=== PATIENT | female | born 1980 | race Caucasian/White ===

== ENCOUNTER 2016-06-06 22:16 | Emergency (ER) | payer MEDICAID ==
[~2016-06-06] VITALS: Wt 81.8 kg
[2016-06-07] MEDS ORDERED: ONDANSETRON (ODT) 4 MG TAB ODT STA (01:02)
--- NOTE | 2016-06-07 01:22 | ERD ---
ER Documentation Chief Complaint Date/Time DATE: 06/07/16 TIME: 01:20 Chief Complaint ruq pain w n/v HPI 35-year-old female presents here in emergency department for complaints of right upper quadrant abdominal pain nausea and vomiting started today. Patient described the pain as sharp pain, 6/10 scale, accompanied with vomiting. Patient denies any diarrhea or constipation. Patient denies any fever or chills. Patient denies any blood in the vomit. Patient denies any blood in the stool or black stool. ROS All systems reviewed and are negative except as per history of present illness. Medications Home Meds Active Scripts Nitrofurantoin Monohyd Macrocr* (Macrobid*) 100 Mg Capsr, 100 MG PO BID for 7 Days, CAP Prov:LEELA OCHOA NP 06/07/16 Ondansetron (Ondansetron Odt) 4 Mg Tab.rapdis, 4 MG PO Q8 Y for NAUSEA AND/OR VOMITING, #30 TAB Prov:LEELA OCHOA NP 06/07/16 Hydrocodone/Acetaminophen (Hixson 5-325 Tablet) 1 Each Tablet, 1 TAB PO Q6H Y for SEVERE PAIN LEVEL 7-10, #20 TAB Prov:LEELA OCHOA NP 06/07/16 Reported Medications [none] Unknown Strength No Conflict Check 06/07/16 Allergies Allergies: Coded Allergies: No Known Allergy (Unverified , 06/07/16) PMhx/Soc Medical and Surgical Hx: pt denies Medical Hx, pt denies Surgical Hx Hx Alcohol Use: No Hx Substance Use: No Hx Tobacco Use: No Smoking Status: Never smoker FmHx Family History: No coronary disease, No diabetes, No other Physical Exam Vitals Vital Signs Date Time Temp Pulse Resp B/P Pulse Ox O2 Delivery O2 Flow Rate FiO2 06/07/16 03:54 98.6 82 20 158/78 98 Room Air 06/06/16 22:23 98.4 84 20 180/84 98 Physical Exam GENERAL: The patient is well developed and appropriate for usual state of health, in no apparent distress. CHEST: Clear to auscultation bilaterally. There are no rales, wheezes or rhonchi. HEART: Regular rate and rhythm. No murmurs, clicks, rubs or gallops. No S3 or S4. ABDOMEN: Soft, nontender and nondistended. Good bowel sounds. No rebound or guarding. No gross peritonitis. No gross organomegaly or masses. No Baker sign or McBurney point tenderness. BACK: No midline or flank tenderness. EXTREMITIES: Equal pulses bilaterally. There is no peripheral clubbing, cyanosis or edema. No focal swelling or erythema. Full range of motion. Grossly neurovascularly intact. NEURO: Alert and oriented. Cranial nerves 2-12 intact. Motor strength in all 4 extremities with 5/5 strength. Sensation grossly intact. Normal speech and gait. SKIN: There is no apparent rash or petechia. The skin is warm and dry. HEMATOLOGIC AND LYMPHATIC: There is no evidence of excessive bruising or lymphedema. No gross cervical, axillary, or inguinal lymphadenopathy. Result Diagram: 06/07/1613206/07/16132 Results 24 hrs Laboratory Tests Test 06/07/16 01:27 06/07/16 01:33 Urine Amorphous Urates MANY Urine Bacteria OCCASIONAL Urine Bilirubin NEGATIVE Urine Clarity CLOUDY Urine Color LT. YELLOW Urine Glucose NEGATIVE% Urine Hemoglobin NEGATIVE Urine Ketones TRACE Urine Leukocyte Esterase TRACE Urine Microscopic RBC 0-2/HPF Urine Microscopic WBC 2-5/HPF Urine Nitrite NEGATIVE Urine Specific Rives 1.020 Urine Squamous Epithelial Cells MANY Urine Total Protein TRACE Urine Urobilinogen 2.0 E.U./dL Urine pH 6.5 Alanine Aminotransferase (ALT/SGPT) 110IU/L Albumin 4.6g/dl Albumin/Globulin Ratio 1.58 Alkaline Phosphatase 62IU/L Anion Gap 18 Aspartate Amino Transf (AST/SGOT) 282IU/L Basophils # 0.010^3/ul Basophils % 0.3% Blood Urea Nitrogen 16mg/dl Calcium Level 9.7mg/dl Carbon Dioxide Level 27mmol/L Chloride Level 103mmol/L Creatinine 0.58mg/dl Direct Bilirubin 0.00mg/dl Eosinophils # 0.110^3/ul Eosinophils % 0.6% Globulin 2.90g/dl Glucose Level 103mg/dl Hematocrit 39.4% Hemoglobin 12.1g/dl Indirect Bilirubin 0.1mg/dl Lipase 40U/L Lymphocytes # 2.010^3/ul Lymphocytes % 21.1% Mean Corpuscular Hemoglobin 25.1pg Mean Corpuscular Hemoglobin Concent 30.7g/dl Mean Corpuscular Volume 81.6fl Mean Platelet Volume 9.8fl Monocytes # 0.810^3/ul Monocytes % 8.8% Neutrophils # 6.610^3/ul Neutrophils % 68.8% Nucleated Red Blood Cells # 0.010^3/ul Nucleated Red Blood Cells % 0.0/100WBC Platelet Count 83899^3/UL Potassium Level 4.3mmol/L Red Blood Count 4.8310^6/ul Red Cell Distribution Width 13.5% Sodium Level 144mmol/L Total Bilirubin 0.1mg/dl Total Protein 7.5g/dl White Blood Count 9.510^3/ul Current Medications Medications (Trade) Dose Ordered Sig/Jordana Route PRN Reason Start Time Stop Time Status Last Admin Dose Admin Ondansetron HCl (Zofran Odt) 4 mg ONCE STAT ODT 06/07/16 01:02 06/07/16 01:03 DC 06/07/16 01:41 Acetaminophen/ Hydrocodone Bitart (Hixson (5/325)) 1 tab ONCE ONCE PO 06/07/16 03:00 06/07/16 03:01 DC 06/07/16 02:58 Patient was given Zofran here in the emergency department. After treatment, patient was able to tolerate po fluids here in the emergency department without any vomiting. There is no signs and symptoms of dehydration. Patient was given medication for pain here in emergency department, after treatment, patient verbalized feeling much better. Patient's pain is improved. PROCEDURE: Right upper quadrant ultrasound. CLINICAL INDICATION: Abdominal pain. TECHNIQUE: Multiple real-time longitudinal and transverse images of the right upper quadrant of the abdomen were acquired utilizing a curved array transducer. Images were reviewed on a high-resolution PACS workstation. COMPARISON: None. FINDINGS: The pancreas head and body are unremarkable. The pancreas tail is not well seen. The liver is normal in echogenicity. The liver measures 16.7 cm in length. No hepatic lesion or intrahepatic biliary ductal dilatation is seen. The portal vein is patent with hepatopetal flow. There is a single mobile gallstone within the gallbladder lumen. The gallbladder wall is not thickened. There is no pericholecystic fluid. The common bile duct measures 4 mm in diameter, not dilated. The right kidney measures 11.1 cm in length. Renal echogenicity is normal. There is no hydronephrosis, urinary calculus, or renal mass. The visualized portions of the aorta and IVC are unremarkable. IMPRESSION: 1. Cholelithiasis without evidence of cholecystitis. 2. No biliary dilatation. RPTAT: HTAR .Corby Acosta MD, Date Time Electronically viewed and signed by .Corby Acosta MD, MD on 06/07/2016 02:26 .R/ CC: LEELA OCHOA [employer] Procedures/MDM Medical Decision Making: Patient's symptoms suspect is consistent with biliary colic. There is also an incidental finding of urinary infection that will be treated. No symptoms of pyelonephritis. No symptoms of choledocholithiasis. Liver function tests are mildly elevated lipase is normal. There is low suspicion for abdominal emergencies at this time. Patients abdominal exam is normal at this time. Patients radiology exam does not show any abdominal emergencies at this time. There is low suspicion for appendicitis, cholecystitis , abdominal aortic aneurysms or peritonitis at this time. There is low suspicion for sepsis. Patient appears well and is hemodynamically stable. Disposition: Home. Condition: Stable Prescription Hixson, Zofran and Macrobid Instructions: Patient is advised to take medications as prescribed. Patient is advised to rest, increase fluid intake and do brat diet for next 1-2 days and progress as tolerated. Patient is advised that if symptoms are worse, severe abdominal pain, uncontrolled vomiting, high fever, severe flank pain, worst signs and symptoms, to return to the emergency department immediately. Otherwise, patient can follow up with primary care doctor in 5-7 days. see a general surgeon for possible removal of the gallbladder. Departure Diagnosis: Primary Impression: Biliary colic Additional Impression: UTI (urinary tract infection) Condition: Stable Patient Instructions: Biliary Colic With Gallstone (Confirmed), Understanding Urinary Tract Infections (UTIs) Additional Instructions: Patient is advised to take medications as prescribed. Patient is advised to rest, increase fluid intake and do brat diet for next 1-2 days and progress as tolerated. Patient is advised that if symptoms are worse, severe abdominal pain , uncontrolled vomiting, high fever, severe flank pain, worst signs and symptoms , to return to the emergency department immediately. Otherwise, patient can follow up with primary care doctor in 5-7 days. see a general surgeon for possible removal of the gallbladder. LEELA OCHOA NP Jun 07, 2016 01:22
[2016-06-07 01:43] LABS: ADD SCAN DIFF NO
[2016-06-07 01:46] LABS: BASOPHILS % 0.3 % (0.0-2.0); EOSINOPHILS # 0.1 10^3/ul (0.0-0.5); EOSINOPHILS % 0.6 % (0.0-7.0); HEMATOCRIT 39.4 % (37.0-47.0); HEMOGLOBIN 12.1 g/dl (12.0-16.0); LYMPHOCYTES % 21.1 % (15.0-51.0); MEAN CORPUSCULAR HEMOGLOBIN 25.1 pg (29.0-33.0); MEAN CORPUSCULAR HGB CONC 30.7 g/dl (32.0-37.0); MEAN CORPUSCULAR VOLUME 81.6 fl (82.0-101.0); MEAN PLATELET VOLUME 9.8 fl (7.4-10.4); MONOCYTE # 0.8 10^3/ul (0.3-0.9); MONOCYTES % 8.8 % (0.0-11.0); NEUTROPHIL # 6.6 10^3/ul (1.6-7.5); NEUTROPHILS % 68.8 % (39.0-77.0); PLATELET COUNT 271 10^3/UL (140-415); RED BLOOD COUNT 4.83 10^6/ul (4.20-5.40); RED CELL DISTRIBUTION WIDTH 13.5 % (11.5-14.5); WHITE BLOOD COUNT 9.5 10^3/ul (4.8-10.8)
[2016-06-07 01:56] LABS: ADD UMIC YES; URINE BILIRUBIN (Dip) NEGATIVE (NEGATIVE); URINE BLOOD (Dip) NEGATIVE (NEGATIVE); URINE COLOR LT. YELLOW (YELLOW); URINE GLUCOSE (Dip) NEGATIVE (NEGATIVE); URINE KETONES (Dip) TRACE (NEGATIVE); URINE LEUKOCYTE ESTERASE (Dip) TRACE (NEGATIVE); URINE NITRITE (Dip) NEGATIVE (NEGATIVE); URINE TOTAL PROTEIN (Dip) TRACE (NEGATIVE); URINE UROBILINOGEN (Dip) 2.0 E.U./dL (0.1-1.0)
[2016-06-07 01:56] LABS: ALBUMIN 4.6 g/dl (3.3-4.9)
[2016-06-07 01:57] LABS: POTASSIUM 4.3 mmol/L (3.5-5.1)
[2016-06-07 01:59] LABS: ALBUMIN/GLOBULIN RATIO 1.58; BILIRUBIN,INDIRECT 0.1 mg/dl (0-1.1); BILIRUBIN,TOTAL 0.1 mg/dl (0.2-1.3); CREATININE 0.58 mg/dl (0.44-1.00); TOTAL PROTEIN 7.5 g/dl (6.1-8.1)
[2016-06-07 02:00] LABS: CALCIUM 9.7 mg/dl (8.4-10.2)
[2016-06-07 02:26] LABS: BACTERIA,URINE OCCASIONAL; SQUAMOUS EPITHELIAL CELL,UR MANY; URINE RBCS 0-2 /HPF (0)
--- NOTE | 2016-06-07 02:26 | RADRPT ---
PROCEDURE: Right upper quadrant ultrasound. CLINICAL INDICATION: Abdominal pain. TECHNIQUE: Multiple real-time longitudinal and transverse images of the right upper quadrant of th e abdomen were acquired utilizing a curved array transducer. Images were reviewed on a high-resoluti on PACS workstation. COMPARISON: None. FINDINGS: The pancreas head and body are unremarkable. The pancreas tail is not well seen. The liver is normal in echogenicity. The liver measures 16.7 cm in length. No hepatic lesion or in trahepatic biliary ductal dilatation is seen. The portal vein is patent with hepatopetal flow. There is a single mobile gallstone within the gallbladder lumen. The gallbladder wall is not thicke katerin. There is no pericholecystic fluid. The common bile duct measures 4 mm in diameter, not dilated . The right kidney measures 11.1 cm in length. Renal echogenicity is normal. There is no hydronephro sis, urinary calculus, or renal mass. The visualized portions of the aorta and IVC are unremarkable. IMPRESSION: 1. Cholelithiasis without evidence of cholecystitis. 2. No biliary dilatation. RPTAT: HTAR .Corby Acosta MD, MD Date Time Electronically viewed and signed by .Corby Acosta MD, on 06/07/2016 02:26 .R/
[2016-06-07] MEDS ORDERED: HYDR-906 PO (02:47)
[2016-06-07] MEDS ORDERED: ONDA4TAB14 PO (02:47)
[2016-06-07] MEDS ORDERED: NITR-58 PO (02:47)
[2016-06-07] MEDS ORDERED: HYDROCODONE/APAP (5/325) TAB PO ONE (03:00)
[2016-06-07 03:54] VITALS: BP 158/78; PULSE 82; RESP 20; TEMP 98.6
== END 2016-06-07 03:55 | disposition home or self-care (01) ==
LOC: FTE 22:16
DX: K80.20 Calculus of gallbladder without cholecystitis without obstruction (principal); N39.0 Urinary tract infection, site not specified
CPT/HCPCS: 36415; 76705; 80053; 81001; 81003; 83690; 85025; Z7502; Z7610